=== PATIENT | male | born 1995 | race African-American/Black ===

== ENCOUNTER → 2018-07-14 | Outpatient (CLI) | payer OTHER ==
--- NOTE | 2018-07-14 11:19 | REP ---
LEFT HAND COMPLETE: 07/14/2018 CLINICAL HISTORY: Trauma. Four views are provided. There is an oblique fracture of the proximal shaft of the fourth metacarpal with a few millimeters of dorsal displacement of the distal fragment. There is only minimal dorsal angulation of the fracture apex. There is no involvement of the articular aspects of the proximal fourth metacarpal. The remaining metacarpals, phalanges and carpal bones are unremarkable. No other finding. IMPRESSION: 1. Proximal shaft fracture of the fourth metacarpal with very subtle anterior or dorsal displacement distal fragment with minimal angulation. No other finding. Electronically Signed by Robert Rocha MD 07/14/2018 09:49 P
== END ==
LOC: M RAD 09:19
PROVIDERS: ATTEND Surgery
DX: S62.615A Displaced fracture of proximal phalanx of left ring finger, initial encounter for closed fracture (principal); X58.XXXA Exposure to other specified factors, initial encounter; Y92.89 Other specified places as the place of occurrence of the external cause

== ENCOUNTER → 2018-08-02 | Outpatient (CLI) | payer OTHER ==
--- NOTE | 2018-08-02 11:11 | REP ---
LEFT HAND, FOUR VIEWS: HISTORY: Fracture. COMPARISON: 07/14/2018 There is a healing fracture of the 4th metacarpal. Callous formation is present. There is no new fracture or dislocation. The joint spaces are normal in appearance. IMPRESSION: Healing fracture of the 4th metacarpal. Electronically Signed by Amandeep Lowery MD 08/02/2018 11:12 A
== END ==
LOC: M RAD 08:47
PROVIDERS: ATTEND Surgery
DX: Z47.89 Encounter for other orthopedic aftercare (principal)